=== PATIENT | female | born 1975 | race Hispanic/Latino ===

== ENCOUNTER 2020-08-19 15:14 | Outpatient (CLI) | payer BC, SELFPAY ==
--- NOTE | ~2020-08-19 | MM_ITS ---
EXAMINATION: MM screening philomena BI w arnold HISTORY: Screening mammogram, family history of breast cancer in her mother. TECHNIQUE: Craniocaudal and mediolateral oblique 3-D tomosynthesis images were obtained and synthetic 2-D images were generated. CAD analysis was submitted and interpreted. COMPARISON: No prior mammogram is available for comparison at this institution. BREAST PARENCHYMAL COMPOSITION: The breasts are heterogeneously dense, which may obscure small masses . FINDINGS: RIGHT BREAST: There are right breast masses with associated biopsy markers. A mass is present in the anterior third of the lower inner breast. LEFT BREAST: There is no evidence of suspicious mass, calcification, or architectural distortion to s uggest malignancy. IMPRESSION: 1. Right breast mass which may represent the patient's baseline however no comparison is currently av ailable. 2. Comparison with prior mammograms is necessary. BI-RADS Category 0: Incomplete: Needs comparison with prior mammograms. Reviewed, dictated and finalized at location A. IMPRESSION: 1. Right breast mass which may represent the patient's baseline however no comp arison is currently available. 2. Comparison with prior mammograms is necessary. BI-RADS Category 0: Incomplete: Needs comparison with prior mammograms.
== END 2020-08-19 15:15 | disposition home or self-care (01) ==
LOC: ANHIMG 15:17
PROVIDERS: PCP Physician Assistant; Visit Provider Obstetrics & Gynecology
DX: Z12.31 Encounter for screening mammogram for malignant neoplasm of breast (principal); R92.8 Other abnormal and inconclusive findings on diagnostic imaging of breast
CPT/HCPCS: 77063; 77067

== ENCOUNTER 2021-12-27 08:30 | Outpatient (CLI) | payer BC, SELFPAY ==
--- NOTE | ~2021-12-27 | MM_ITS ---
EXAMINATION: MM screening philomena BI w arnold HISTORY: Screening mammogram, family history of breast cancer in her mother. TECHNIQUE: Craniocaudal and mediolateral oblique 3-D tomosynthesis images were obtained and synthetic 2-D images were generated. CAD analysis was submitted and interpreted. COMPARISON: 08/19/2020, 01/26/2016, 10/20/2015 BREAST PARENCHYMAL COMPOSITION: The breasts are heterogeneously dense, which may obscure small masses . FINDINGS: There are stable biopsy masses of the right breast. No suspicious mass, calcification, or a rchitectural distortion are identified in either breast to suggest malignancy. There has been no susp icious interval change. IMPRESSION: 1. No mammographic evidence of malignancy. 2. Recommend routine screening mammography in one year. BI-RADS Category 2: Benign finding(s). Reviewed, dictated and finalized at location A.
== END 2021-12-27 08:31 | disposition home or self-care (01) ==
LOC: ANHIMG 08:32
PROVIDERS: PCP Physician Assistant; Visit Provider Obstetrics & Gynecology
DX: Z12.31 Encounter for screening mammogram for malignant neoplasm of breast (principal)
CPT/HCPCS: 77063; 77067

== ENCOUNTER 2023-11-07 07:38 | Outpatient (CLI) | payer BC, SELFPAY ==
--- NOTE | ~2023-11-07 | MM_ITS ---
EXAMINATION: MM screening philomena BI w arnold HISTORY: Screening TECHNIQUE: Craniocaudal and mediolateral oblique 3-D tomosynthesis images were obtained and synthetic 2-D images were generated. CAD analysis was submitted and interpreted. COMPARISON: Comparison to multiple prior studies sequentially, with oldest reviewed study dated 10/19. BREAST PARENCHYMAL COMPOSITION: Dense: The breasts are heterogeneously dense, which may obscure small masses FINDINGS: there is a developing asymmetry in the lower central aspect of the right breast anterior th ird. The left breast is stable without evidence for malignancy. IMPRESSION: 1. Developing right breast asymmetry. 2. Additional mammographic views and possible breast ultrasound are recommended. BI-RADS Category 0: Incomplete: Needs additional imaging evaluation. Reviewed, dictated and finalized at location B. IMPRESSION: 1. Developing right breast asymmetry. 2. Additional mammographic views and possible breast ultrasound are recommended . BI-RADS Category 0: Incomplete: Needs additional imaging evaluation.
== END 2023-11-07 07:39 | disposition home or self-care (01) ==
PROVIDERS: PCP Physician Assistant; Visit Provider Nurse Practitioner Obstetrics & Gynecology
DX: Z12.31 Encounter for screening mammogram for malignant neoplasm of breast (principal); N64.89 Other specified disorders of breast
CPT/HCPCS: 77063; 77067

== ENCOUNTER 2023-11-20 10:11 | Outpatient (CLI) | payer BC, SELFPAY ==
--- NOTE | ~2023-11-20 | MMUS_ITS ---
EXAMINATION: MM diagnostic philomena RT w arnold, US breast RT limited HISTORY: Developing right breast mass TECHNIQUE: Additional 3-D tomosynthesis images of the right breast were performed and synthetic 2-D i mages were generated. CAD analysis was submitted and interpreted. High resolution limited right breas t ultrasound was performed. COMPARISON: 11/07/2023, 12/27/2021, 08/19/2020 BREAST PARENCHYMAL COMPOSITION:Dense: The breasts are heterogeneously dense, which may obscure small masses. FINDINGS: MAMMOGRAPHIC FINDINGS: Spot compression views demonstrate suspected low-density ovoid subareolar right breast mass measuring 11 mm in maximum diameter. ULTRASOUND: At the right breast subareolar region, there is a 6 x 3 x 4 mm ovoid hypoechoic solid mass, wider karel n tall, well-circumscribed. No posterior shadowing. IMPRESSION: Subcentimeter probable benign ovoid mass in the right subareolar and, as detailed above. 6 month fol low-up mammogram and ultrasound recommended to reassess. BI-RADS category 3, probably benign findings. Reviewed, dictated and finalized at location M. IMPRESSION: Subcentimeter probable benign ovoid mass in the right subareolar and, as detai led above. 6 month follow-up mammogram and ultrasound recommended to reassess. BI-RADS category 3, probably benign findings.
== END 2023-11-20 10:12 | disposition home or self-care (01) ==
LOC: ANHIMG 10:11
PROVIDERS: PCP Physician Assistant; Visit Provider Nurse Practitioner Obstetrics & Gynecology
DX: R92.8 Other abnormal and inconclusive findings on diagnostic imaging of breast (principal)
CPT/HCPCS: 76642; 77061; 77065; G0279

== ENCOUNTER 2024-05-10 10:32 | Outpatient (CLI) | payer BC, SELFPAY ==
--- NOTE | ~2024-05-10 | MM_ITS ---
EXAMINATION: MM diagnostic philomena RT w arnold HISTORY: 48-year-old postmenopausal, nulliparous woman (via EMR) with a significant family history of breast cancer (diagnosed in patient's mother before the age of 50) presents following two prior righ t breast biopsies (presumably with benign results) for six-month follow-up asymmetry in the retroareo lar portion of the right breast TECHNIQUE: Additional 3-D tomosynthesis images of the right breast were performed and synthetic 2-D i mages were generated. CAD analysis was submitted and interpreted. COMPARISON: Examination was compared with multiple prior studies, performed most recently on and dating back to 10/20/2015 BREAST PARENCHYMAL COMPOSITION: Dense: The breasts are heterogeneously dense, which may obscure small masses. FINDINGS: MAMMOGRAPHIC FINDINGS: Two microclips within the upper outer quadrant of the posterior third of the right breast. Ultrasound dated 01/26/2016 demonstrated these areas to represent (most likely) benign fibroadenomas. Redemonstration of the retroareolar asymmetry within the right breast. This area has increased in siz e from previous examination for which repeat ultrasound is recommended. Cine clips from ultrasound dated 11/20/2023, demonstrate multiple tubular structures with internal tomasa scular debris. This appearance is concerning for an intraductal papilloma for which repeat ultrasound is recommended. IMPRESSION: Findings within the retroareolar position of the right breast for which focused ultrasound is recomme nded. BI-RADS Category 0: Incomplete: Needs additional imaging evaluation. Reviewed, dictated and finalized at location A. PULLER IMPRESSION: Findings within the retroareolar position of the right breast for which focused ultrasound is recommended. BI-RADS Category 0: Incomplete: Needs additional imaging evaluation.
--- OUTSIDE RECORDS SUMMARY | 2024-05-10 11:26 | XMS_ITS | Clinical Summary ---
Author Organization [facility] [place] Address [address] [address] [facility] [place] [address] Care Team Providers Care Casino Shift Manager Name Role Phone Unavailable Primary Care Provider Unavailabl e Allergies No known active allergies Medications lisinopril-hydr oCHLOROthiazide (ZESTORETIC) 20-12.5 mg tablet TAKE 1 2 (ONE HALF) TABLET BY MOUTH ONCE DAILY 1 08/23/2018 Active metoprolol succinate (TOPROL XL) 25 mg Extended Release 24 hour tablet TAKE 1 2 (ONE HALF) TABLET BY MOUTH ONCE DAILY AT BEDTIME 08/23/2018 Active AUTO SERVICE ADVISOR THYROID 90 mg tablet TAKE 1 TABLET BY MOUTH ONCE DAILY 08/12/2018 Active triamcinolone acetonide (KENALOG) 0.1 % Cream Apply to affected area 2 times daily. 30 Gram 09/13/2018 Active predniSONE (DELTASONE) 10 mg tablet Take 1 Tablet (10 mg) by mouth daily Take 6 tabs for 2 days and then decrease by 1 tab every 2 days.. 42 Tablet 09/13/2018 Active Active Problems No known active problems Social History Tobacco Use Types Packs/Day Years Used Date Smoking Tobacco: Never Comments No Sex and Gender Information Value Date Recorded Sex Assigned at Not on file Legal Sex Female 2:34 PM CDT Gender Identity Not on file Sexual Orientation Not on file Last Filed Vital Signs Vital Sign Reading Time Taken Comments Blood Pressure 121/84 09/13/2018 2:45 PM CDT Pulse 65 09/13/2018 2:45 PM CDT Temperature 37 C (98.6 F) 09/13/2018 2:45 PM CDT Respiratory Rate 20 09/13/2018 2:45 PM CDT Oxygen Saturation 99% 09/13/2018 2:45 PM CDT Inhaled Oxygen Concentration - - Weight - - Height - - Body Mass Index - - Plan of Treatment Health Maintenance Due Date Last Done Comments DTAP/TDAP/TD VACCINES (1 - Tdap) 1992 HEPATITIS B VACCINES (1 of 3 - 19+ 3-dose series) 1992 CERVICAL CANCER SCREENING 07/05/2003 BREAST CANCER SCREENING 2013 COLORECTAL SCREENING 2018 Colorectal Cancer Screening 2018 FIT-DNA Q 3 years 2018 FIT/FOBT Q 1 year 2018 Flex Sig/CT Colonography Q 5 years 2018 ZOSTER VACCINE (1 of 2) 07/05/2023 INFLUENZA VACCINE (#1) 2023 PNEUMOCOCCAL VACCINE 0-49 YEARS Aged Out No longer eligible based on patient's age to complete this topic Insurance OUT OF STATE Member Subscriber Plan / Payer (Ef fective 2018-Present) Name:Umu Frost Relation to Subscriber:Self Name:Umu Frost Payer ID:[id number] (NAIC) Type:[employer] Address: [facility] [id number] [place] [address]
--- OUTSIDE RECORDS SUMMARY | 2024-05-10 11:26 | XMS_ITS | Continuity of Care Document ---
Author Organization [facility] Address [address] [place] [address] Phone Care Team Providers Care Hydropress Operator Name Role Phone Danilo Desai PA-C Unavailable Unavailable Allergies, Adverse Reactions, Alerts Substance Reaction Status Criticality No Known Allergies Active No Inform ation Medications Medication Instructions Dosage Effective Dates (start - stop) Status Comments Tylenol-Codeine #3 300 mg-30 mg tablet take 1 tablet by oral route every 6 hours as needed - Active LISINOPRIL (unknown strength) Not Available - Active METOPROLOL TARTRATE (unknown strength) Not Available - Active ASPIRIN (unknown strength) Not Available - Active SYNTHROID (unknown strength) Not Available - Active Procedures Procedure Date Finger(s) Xray Min 2 Views Office/outpatient visit,[facility], [facility] 2022 Finger(s) Xray Min 2 Views Office/outpatient visit,[facility], [facility] 2022 Finger/thumb Fx (prox Or Middle Phalanx) Trtmt W/o Manip Hand Xray Min 3 Views Postop followup visit Postop followup visit Hand Metacarpal Fx Single,Trtmt W/o Mikhail p Office/outpatient visit,[facility], [facility] 2014 WHFO, W/O Joint(s), Prefabricated Advance Directives Directive Yes / No Effective Date File Name No Information Encounters Encounter Description Practice Location Reason(s) For Visit Diagnoses Date Provider Providers Copied on Encounter Office/outpat ient visit,est, mod [facility], [address] [place] [address], [id number], tel:[phone] [facility] Pain in left finger(s)Disp fx of middle phalanx of left little finger, 7thD 3 Lloyd Carrasco. [address] [place] [address], [id number] , . tel:[phone] Referring Provider: Danilo Desai, [address] [place] [address], [id number] . tel:[phone] [facility], [address] [place] [address], [id number], tel:[phone] [facility] Displaced fracture of middle phalanx of left little finger, subsequent encounter for fracture with routine healingFinger stiffness, left July- 3 Shade Loredo. [address] [place] [address], [id number] , . tel:[phone] Referring Provider: Danilo Desai, [address] [place] [address], [id number] . tel:[phone] Office/outpat ient visit,[facility], [facility], [address] [place] [address], [id number], tel:[phone] [facility] little finger (chief complaint) Pain in left finger(s)Close d displaced fracture of middle phalanx of left little finger, initial encounter 3 Lloyd Carrasco. [address] [place] [address], [id number] , . tel:[phone] Referring Provider: Danilo Desai, [address] [place] [address], [id number] . tel:[phone] [facility], [address] [place] [address], [id number], tel:[phone] [place] Office right hand pain (chief complaint) Fx Metacarp Bone(s), Base - ClosedFx Metacarpal Bone(s), Shaft - Closed Mar-2 0-201 5 Regine Machado. [address], [place], [id number] , . tel:[phone] Office/outpat ient visit,new, mod [facility], [address] [place] [address], [id number], tel:[phone] [facility] right hand pain (chief complaint) Fracture of fourth metacarpal boneSimple metacarpal shaft fx May- 5 Christopher Machado. [address], [place], [id number] , . tel:[phone] Referring Provider: Octaviano Donaldson, [address] [place], [address]. tel:[phone] [facility], [address] [place] [address], [id number], tel:[phone] [facility] No Information 5 Christopher Machado. [address], [place], [id number] , . tel:[phone] Referring Provider: Carter Kimble, [address] [place] [address], [id number] . tel:[phone] Family History Family Member Type Diagnosis Age At Onset Mother Problem (finding) malignant neop lasm of breast in first degree relative Father Problem (finding) Lymphoma Payers Payer name Insurance type Covered constitution party ID Authoriza nicholas(s) BC[facility] [id number] Social History Type Description Quantity Date Captured Comments Alcohol Use Details Unknown Caffeine Use Details Unknown Tobacco Use Status No Information Smoking Status No Information Sex Female Chief Complaint And Reason For Visit No Information Reason For Referral Reason For Referral No Information Plan Of Treatment Date Type Action Status Future Order: Radiology Order Fi nger(s) Xray Min 2 Views ([id number]), Ordered on: Ordered Future Order: Radiology Order Fi nger(s) Xray Min 2 Views ([id number]), Ordered on: Ordered Future Order: Radiology Order Bot[place] nd Xray Min 3 Views ([id number]), Ordered on: Ordered History Of Present Illness Encounter Date Complaint History Of Prese nt Illness little finger right hand pain Ms Frost is a 38 year old female who complains of right hand pain. She presents with pain, fracture and stiffness on the right side. The problem is improving. Currently the patient states that the symptoms are mild-moderate. The pain is described as aching and deep. The symptoms occur with activity. She rates her current pain as 2/10. Patient has been in a removable plastic brace has minimal complaints doing well at this time. right hand pain Ms Frost is a 38 year old female who complains of right hand pain. She presents with pain on the right side. She states that the symptoms have been acute traumatic and began 2 days ago. She indicates the injury occurred at home. Umu states that the symptoms began as the result of direct impact. The symptoms occur intermittently. The problem is fluctuating. Currently the patient states that the symptoms are moderate. The pain is described as aching. Patient was running on the treadmill and flung her hand out hitting it on the treadmill, sustaining injury to the fourth metacarpal. She denies numbness or tingling. She denies prior injury. She is right-hand dominant. She does not work outside the home Functional Status Date Functional Assessmen t No Information Instructions Date Instruction Additional Infor mation Findings were discus sed with patient I think it's in acceptable condition and position today we will continue with a removable ulnar gutter splint protective activities gentle range of motion was discussed we'll see her back in 3 weeks with x-rays out of the splint were expected that will be it with the splint if she has any problems concerns of interval she was asked call may require some physical therapy Related to Fx Metacarpal Bone(s), Shaft - Closed Patient was educated on the diagnosis and treatment plan. Related to Fx Metacarp Bone(s), Base - Closed We'll katerin tape fin gers and place her in a removable ulnar gutter splint. I will see her back in 10 days for recheck. She understands of the fracture shifts, we may have to stabilize it, but at this point, it should be amenable to nonoperative treatment Related to Fracture of fourth metacarpal bone Patient was educated on the diagnosis and treatment plan. Related to Fracture of fourth metacarpal bone FU 10 days XOOS Rt 4th metcarpal fx Related to Fracture of fourth metacarpal bone Assessments Type Assessment Date assessment Pain in left finger(s) assessment Disp fx of middle phalanx of lef t little finger, 7thD Patient Care Teams Name Effective Dates (start - stop) Status Members No Information
--- OUTSIDE RECORDS SUMMARY | 2024-05-10 11:26 | XMS_ITS | Encounter Summary ---
Author Organization [facility] Care Team Providers Care Geoduck Diver Name Role Phone Referral, Self Primary Care Provider MIGUELITO Solis Jr., Garry Valentin Primary Care Provide r Encounter Details Date Type Department Care Team (Latest Contact Info) Description 06/29/2017 Orders Only [facility] CLINCON[facility] ProviderDalia MD [address] [place] [address] Social History Tobacco Use Types Packs/Day Years Used Date Smoking Tobacco: Never Assessed Comments Unknown Sex and Gender Information Value Date Recorded Sex Assigned at Not on file Legal Sex 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 Historical Provider Final Res ult documented in this encounter Visit Diagnoses Not on filedocumented in this encounter Care Teams Geoduck Diver Relationship Specialty Start Date End Date Referral, Self PCP - General 07/03/17 01/14/20 Garry Gaitan Jr., PA PCP - General Family Medicine 01/15/20 documented as of this encounter
--- OUTSIDE RECORDS SUMMARY | 2024-05-10 11:26 | XMS_ITS | Encounter Summary ---
Author Organization [facility] Address [address] [place] [address] Care Team Providers Care Chair Trimmer Name Role Phone MIGUELITO Gaitan Jr., Garry Valentin Primary Care Provide r Reason for Visit * Reason Onset Date Comments Additional Services Or Orders 04/12/2024 Encounter Details Date Type Department Care Team ([facility] st Contact Info) Description 04/12/[address] [facility] Primary Care [address] [address] Garry Gaitan Jr., PA [address] [address] Additional Services Or Orders Social History Tobacco Use Types Packs/Day Years Used Date Smoking Tobacco: Former Cigarettes Q uit: 02/21/2008 Alcohol Use Standard Drinks/Week Comments Yes 0 (1 standard drink = 0.6 oz pur e alcohol) socially AUDIT-C Answer Date Recorded Q1: How often do you have a drink containing alc ohol? Monthly or less 10/26/2023 Q2: How many drinks containi ng alcohol do you have on a typical day when you are drinking? 1 or 2 10/26/2023 Frequency of Binge Drinking Not on file 10/05 PHQ-2 Answer Date Recorded PHQ-2 Total Score (If total score is 3 or more points, staff should administer the PHQ-9) 0 07/06/2023 Personal Safety Answer Date Recorded Getting School Help Needed Not on file 02/18 Comments No Sex and Gender Information Value Date Recorded Sex Assigned at Not on file Legal Sex 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 RN TRANSITIONAL Gender Identity Not on file Sexual Orientation Not on file documented as of this encounter Miscellaneous Notes * Telephone Encounter - Sheba Lozano - 04/12/2024 12:30 PM CST Medical Question/Miscellaneous Caller???s Concern: Patient calling, received letter from [facility] stating that she needs additional testing after her mammogram. Relayed that there are orders for US of Breast and Diagnostic Mammogram. Patient will call back with [place] contact information to send order, or will schedule with Centralized Scheduling. Does message need to be routed? No TRANSITIONAL documented in this encounter Plan of Treatment Not on file documented as of this encounter Visit Diagnoses Not on filedocumented in this encounter Care Teams Chair Trimmer Relationship Specialty Start Date End Date Garry Gaitan Jr., PA PCP - General Family Medicine 01/15/20 documented as of this encounter
--- OUTSIDE RECORDS SUMMARY | 2024-05-10 11:26 | XMS_ITS | Encounter Summary ---
Author Organization [facility] Address [address] [place] [address] Care Team Providers Care Automotive Parts Manager Name Role Phone Garry Gaitan Primary Care Provider [phone] Joseline Maldonado MD Unavailable [phone] Encounter Details Date Type Department Care Team (Latest Contact Info) Description 01/09/2018 Abstract [facility] , Nasim Childress MD Social History Tobacco Use Types Packs/Day Years Used Date Smoking Tobacco: Former Cigarettes Smokeless Tobacco: Never Alcohol Use Standard Drinks/Week Comments Yes 0 (1 standard drink = 0.6 oz pur e alcohol) occasionally Comments Unknown Sex and Gender Information Value Date Recorded Sex Assigned at Not on file Legal Sex Female 8:52 PM CDT Gender Identity Not on file Sexual Orientation Not on file 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 [address] [place], [place] [id number] documented as of this encounter Visit Diagnoses Not on filedocumented in this encounter Care Teams Automotive Parts Manager Relationship Specialty Start Date End Date Garry Gaitan PA [address] [place] [address] [address] [place], [place] [id number] PCP - General PHYSICIAN MACHINE OPERATOR HELPER 07/04/17 Joseline Maldonado MD [facility] [address] [place], [place] [id number] [facility] CARDIOVASCULAR [facility] 08/03/17 documented as of this encounter
--- OUTSIDE RECORDS SUMMARY | 2024-05-10 11:26 | XMS_ITS | Encounter Summary ---
Author Organization [facility] Address [address] [place] [address] Care Team Providers Care Digital Account Manager Name Role Phone MIGUELITO Gaitan Jr., Garry Valentin Primary Care Provide r Reason for Visit * Reason Onset Date Comments Medical Records Request 04/12/2024 Encounter Details Date Type Department Care Team ([facility] st Contact Info) Description 04/12/2024 Telephone [facility] Primary Care [address] [address] Garry Gaitan Jr., PA [address] [address] Medical Records Request Social History Tobacco Use Types Packs/Day Years [...] Getting School Help Needed Not on file 12/16 /2023 Comments No Sex and Gender Information Value Date Recorded Sex Assigned at Not on file Legal Sex 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 HEAD COOK Gender Identity Not on file Sexual Orientation Not on file documented as of this encounter Miscellaneous Notes * Telephone Encounter - Char Strange - 04/15/2024 1:03 PM CST LM @ 1:01pm on Umu's cp, informing her that I faxed both Diag Mamm and US Orders to [facility], which went through successfully. She's still scheduled on 05-13-24 Testing @ [facility], but not cancelling until I speak to Ms Frost. I've also spoke to AUSTYN about scheduling, so he's OK w/me calling to cancel, too. OK to warm transfer call to [place] (Madisyn @ Check Out)/[facility] COOK * Telephone Encounter - Ignacia Camargo - 04/12/2024 3:03 PM CST Call Back Caller???s Concern: Patient returned office call, DIRECTOR OF CONTENT MARKETING warm transferred to [place]. REASON FOR TRANSFER: per message from PCP office TRANSFERRED TO: Madisyn Does message need to be routed? No COOK * Telephone Encounter - Char Strange - 04/12/2024 2:37 PM CST LM @ 2:37pm on Umu's cp, asking for call back in re/what facility the Mamm results are gettingfaxed to. OK to warm transfer call to [place] (Madisyn @ Check Out)/[facility] COOK * Telephone Encounter - Xenia Jeronimo MA - 04/12/2024 1:46 PM CST Yes COOK * Telephone Encounter - Wen Tabares - 04/12/2024 12:43 PM CST Medical Records Request Request Type: Records Request Practice Will Complete What records are being requested:Screening Mammogram results Who will the records be sent to (if being sent to another doctor, list the doctor's name and specialty)? [facility] Date Needed: shalini Delivery Method: Fax Fax number to use for return of records: [phone] Additional Comments/Concerns: No Does the message need to be routed? Yes-Action Needed COOK documented in this encounter Plan of Treatment Not on file documented as of this encounter Visit Diagnoses Not on filedocumented in this encounter Care Teams Digital Account Manager Relationship Specialty Start Date End Date Garry Gaitan Jr., PA PCP - General Family Medicine 01/15/20 documented as of this encounter
--- OUTSIDE RECORDS SUMMARY | 2024-05-10 11:26 | XMS_ITS | Encounter Summary ---
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 Gender Identity Not on file Sexual Orientation Not on file documented as of this encounter Plan of Treatment Not on file documented as of this encounter Procedures Procedure Name Priority Date/Time Associated Diagnosis Comments SCAN - RADIOLOGY/IMAGING 11/20/2023 documented in this encounter Results * SCAN - RADIOLOGY/IMAGING (11/20/2023) Anatomical Region Laterality Modality Other us Provider Scanning Final Result documented in this encounter Visit Diagnoses Not on filedocumented in this encounter Care Teams Delicatessen Store Manager Relationship Specialty Start Date End Date Garry Gaitan Jr., PA PCP - General Family Medicine 01/15/20 documented as of this encounter
--- OUTSIDE RECORDS SUMMARY | 2024-05-10 11:26 | XMS_ITS | Encounter Summary ---
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 Historical Provider [facility] SHASHI LING Final Result documented in this encounter Visit Diagnoses Not on filedocumented in this encounter Care Teams Paint Crew Supervisor Relationship Specialty Start Date End Date Referral, Self PCP - General 07/03/17 01/14/20 Garry Gaitan Jr., PA PCP - General Family Medicine 01/15/20 documented as of this encounter
--- OUTSIDE RECORDS SUMMARY | 2024-05-10 11:26 | XMS_ITS | Referral Summary ---
Author Organization [facility] Address [address] [place] [address] Phone Care Team Providers Care Program Host Name Role Phone MIGUELITO Gaitan Jr., Garry Valentin Primary Care Provide r Encounters Date Type Department Care Team Description 04/12/2024 Telephone [facility] Medical [facility] Primary Care [address] [place] [phone] Garry Gaitan Jr., PA Medical Records Request 04/12/2024 Telephone [facility] Primary Care [address] [place] [phone] Garry Gaitan Jr., PA Additional Services Or Orders from Last 3 Months Allergies No known active allergies Medications omeprazole (PriLOSEC) 20 mg capsule Take 1 capsule (20 mg total) by mouth 2 (two) times a day Active metoprolol (LOPRESSOR) 25 mg tablet Take 1 tablet (25 mg total) by mouth 2 (two) times a day 180 tablet 4 11/15/2018 Active lisinopril-hydro CHLOROthiazide (ZESTORETIC) 20-12.5 mg per tabletIndication s:hypertension Take 0.5 tablets by mouth daily 90 tablet 1 11/27/2020 Active lisinopriL (PRINIVIL,ZESTRI L) 5 mg tablet 09/15/2023 Acti ve predniSONE (DELTASONE) 20 mg tablet TAKE 2 TABLETS BY MOUTH ONCE DAILY FOR 5 DAYS 10/21/2023 Active hydrOXYzine (ATARAX) 10 mg tabletIndication s:sleep 1 or 2 tabs at bedtime as needed. 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 Take 1 tablet (90 mg total) by mouth daily 90 tablet 1 12/11/2023 Active Active Problems Problem Noted Date Diagnosed Date Aortic dissection 10/26/2023 Pulmonary embolism 10/26/2023 Sleep apnea 10/26/2023 Thoracic aortic aneurysm 10/26/2023 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/03/2021 Acquired hypothyroidism 04/17/2020 Essential hypertension 04/17/2020 History of aortic dissection 04/17/2020 Hypertriglyceridemia 08/23/2018 Diaphragmatic hernia without obstruction or gang rehana 01/16/2018 Gastro-esophageal reflux disease without esophag itis 12/11/2017 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 Other obesity due to excess calories 07/03/2017 Immunizations Immunization Administration Dates Next Due Influenza, Quadrivalent, Spl it, Intramuscular 02/04/2016,12/01/2014 Influenza, Quadrivalent, Spl it, Preservative Free, Intramuscular 03/27/2018 Influenza, Unspecified 01/04/2023(Deferr ed: Patient Refused),12/10/2022,12/06/2021(Deferre d: Patient Refused),02/04/2016,12/01/2014 TD Preservative Free 10/12/2010 Social History Tobacco Use Types Packs/Day Years Used Date Smoking Tobacco: Former Cigarettes Q uit: 02/21/2008 Tobacco Cessation:Counseling Given: Not Answered Alcohol Use Standard Drinks/Week Comments Yes 0 [...] on file 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 Gender Identity Not on file Sexual Orientation Not on file Last Filed Vital Signs Vital Sign Reading Time Taken Comments Blood Pressure 120/78 10/26/2023 2:44 PM CDT Pulse 72 10/26/2023 2:44 PM CDT Temperature 35.9 C (96.6 F) 10/26/2023 2:44 PM CDT Respiratory Rate 16 10/26/2023 2:44 PM CDT Oxygen Saturation 99% 10/26/2023 2:44 PM CDT Inhaled Oxygen Concentration - - Weight 96.2 kg (212 lb) 10/26/2023 2:44 PM CDT Height 165.1 cm (5' 5 ) 10/26/2023 2:44 PM CDT Body Mass Index 35.28 10/26/2023 2:44 PM CDT Plan of Treatment Not on file Procedures Procedure Name Priority Date/Time Associated Diagnosis Comments SCREENING MAMMOGRAM BILATERAL W CARRIE Schedule Routine, Read Routine (OP Routine) 11/07/2023 4:46 PM CDT from Last 3 Months or Most Recently Relevant to Health Maintenance Results * (ABNORMAL) Screening Mammogram Bilateral W Carrie (11/07/2023 4:46 PM CDT) Anatomical Region Laterality Modality Breast Bilateral Mammography us Historical Provider MD ESCALERA MAMMO PROCEDURES Enriqueta l Result from Last 3 Months or Most Recently Relevant to Health Maintenance Insurance [facility] H[facility]/PPO Address: [address] [address] [place] [address] [employer] OOS ANTHEM ACCESS Care Teams Program Host Relationship Specialty Start Date End Date Garry Gaitan Jr., PA PCP - General Family Medicine 01/15/20
--- OUTSIDE RECORDS SUMMARY | 2024-05-10 11:26 | XMS_ITS | Encounter Summary ---
Author Organization [facility] Healthcare Address [address] [place] [address] Care Team Providers Care Dental Aide Name Role Phone MIGUELITO Gaitan Jr., Garry Valentin Primary Care Provide r Encounter Details Date Type Department Care Team ([facility] st Contact Info) Description 09/05/2023 Orders Only [facility] Medical Group Primary Care [address] [facility] [address] [place] [phone] Garry Gaitan Jr., PA [facility] [address] Social History Tobacco Use Types Packs/Day Years Used Date Smoking Tobacco: Former Cigarettes Q uit: 02/21/2008 Alcohol Use Standard Drinks/Week Comments Yes 0 (1 standard drink = 0.6 oz pur e alcohol) socially PHQ-2 Answer Date Recorded PHQ-2 Total Score (If total score is 3 or more points, staff should administer the PHQ-9) 0 07/06/2023 Personal Safety Answer Date Recorded Getting School Help Needed Not on file 02/18 Comments No Sex and Gender Information Value Date Recorded Sex Assigned at Not on file Legal Sex 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 TOOLER Gender Identity Not on file Sexual Orientation Not on file documented as of this encounter Plan of Treatment Not on file documented as of this encounter Visit Diagnoses Not on filedocumented in this encounter Care Teams Dental Aide Relationship Specialty Start Date End Date Garry Gaitan Jr., PA PCP - General Family Medicine 01/15/20 documented as of this encounter
--- OUTSIDE RECORDS SUMMARY | 2024-05-10 11:26 | XMS_ITS | Encounter Summary ---
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 [address] [place], [place] [id number] documented as of this encounter Procedures Procedure Name Priority Date/Time Associated Diagnosis Comments CBC (OUTSIDE LAB) Routine 12/14/2017 COMPREHENSIVE METABOLIC PANEL Routine 12/14/2017 COMPREHENSIVE METABOLIC PANEL Routine 04/11/2017 LIPID PANEL Routine 04/11/2017 HEMOGLOBIN, GLYCOSYLATED Routine 04/11/2017 documented in this encounter Results * CBC (OUTSIDE LAB) (12/14/2017) WBC 9.2 HGB 11.4 HCT 33.7 PLT 316 12/14/2017 us Doc [facility] Abstract LAB-OUTSIDE/ABSTRACTED Edite d Result - Final * COMPREHENSIVE METABOLIC PANEL (12/14/2017) SODIUM S/P/B 138 POTASSIUM S/P/B 3.9 CO2 26 CHLORIDE S/P/B 102 GLUCOSE 84 mg/dL CALCIUM S/P/B 9.0 BUN 13 CREATININE S/P/B 0.6 0.5 - 1.0 EGFR NON-AFR. AMER. >90 <=90 ALKALINE PHOSPHATASE S/P/B 54 ALT 9 AST 17 BILIRUBIN TOTAL S/P/B 0.5 ALBUMIN S/P/B 4.2 3.5 - 5.0 TOTAL PROTEIN S/P/B 7.2 GLOBULIN 3.0 12/14/2017 us Doc [facility] Abstract LABORATORY Final Result * HEMOGLOBIN, GLYCOSYLATED (04/11/2017) HGB A1C 5.2 04/11/2017 us Doc [facility] Abstract LABORATORY Final Result * COMPREHENSIVE METABOLIC PANEL (04/11/2017) GLUCOSE 85 mg/dL BUN 22 CREATININE S/P/B 1.0 0.5 - 1.0 ALKALINE PHOSPHATASE S/P/B 58 ALT 9 AST 14 BILIRUBIN TOTAL S/P/B 0.3 ALBUMIN S/P/B 4.0 3.5 - 5.0 TOTAL PROTEIN S/P/B 6.8 GLOBULIN 2.8 GGT 2.0 04/11/2017 us Doc [facility] Abstract LABORATORY Final Result * LIPID PANEL (04/11/2017) CHOLESTEROL 157 HDL 40 TRIGLYCERIDES 306 LDL (CALCULATED) 55 04/11/2017 us Doc [facility] Abstract LABORATORY Final Result documented in this encounter Visit Diagnoses Not on filedocumented in this encounter Care Teams Ela Teacher Relationship Specialty Start Date End Date Garry Gaitan PA [address] [place] [phone] PCP - General PHYSICIAN PACKAGING ASSOCIATE 07/04/17 Joseline Maldonado MD [facility] [address] [place], [place] [phone] [place] [employer] Correspondent CARDIOVASCULAR DISEASE 08/03/17 documented as of this encounter
--- OUTSIDE RECORDS SUMMARY | 2024-05-10 11:26 | XMS_ITS | Encounter Summary ---
Author Organization 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
--- OUTSIDE RECORDS SUMMARY | 2024-05-10 11:26 | XMS_ITS | Clinical Summary ---
Author Organization [facility] Address [address] [place] [address] Care Team Providers Care Rigging Helper Name Role Phone Garry Gaitan Primary Care Provider [phone] Joseline Maldonado MD Unavailable [phone] Allergies No known active allergies Medications Multiple Vitamin (DAILY VITAMINS) Tab Take 1 tablet by mouth daily. 10/27/2014 Active BARREL FILLER HEAD THYROID 90 MG Tab Take 1 tablet (90 mg total) by mouth daily. 1 08/12/2018 Active esomeprazole 40 MG capsule Take 1 capsule (40 mg total) by mouth every morning before breakfast. 90 capsule 3 05/03/2021 Active lisinopril (PRINIVIL) 5 MG tablet Take 1 tablet (5 mg total) by mouth daily. NEW DOSE 90 tablet 1 05/30/2022 Active ferrous sulfate EC 325 (65 Fe) MG tablet Take 1 tablet (325 mg total) by mouth daily. 90 tablet 3 09/27/2022 Active lisinopril (PRINIVIL) 5 MG tablet Take 1 tablet (5 mg total) by mouth daily. 90 tablet 1 10/25/2022 Active metoprolol succinate ER (TOPROL-XL) 25 MG 24 hr tablet Take 2 tablets (50 mg total) by mouth nightly at bedtime. 90 tablet 1 09/15/2023 Active WEGOVY 1 mg/dose injection (PEN) Inject 1 mg into the skin once a week. 09/26/2023 Active hydrOXYzine (VISTARIL) 25 MG capsule Take 1 capsule (25 mg total) by mouth daily. Active Active Problems Problem Noted Date Diagnosed Date 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/03/2021 Hypertriglyceridemia 08/23/2018 Thoracic aortic aneurysm Sleep apnea Pulmonary embolism ([facility]) Hypertension Aortic dissection ([facility]) Resolved Problems Problem Noted Date Diagnosed Date Resolved Date Skin tag 10/24/2022 Immunizations Name Administration Dates Next Due Influenza (Generic) 02/04/2016,12/01/2014 MODERNA COVID-19 (12+) MRNA, LNP-S, PF, 100 MCG/ 0.5 ML DOSE 07/08/2020,06/10/2020 Family History Medical History Relation Comments lymphoma Father Breast Cancer Mother Hypertension Mother Thyroid Sister Relation Status Comments Father Alive Maternal Grandfather Alive Maternal Grandmother Alive Mother Alive Paternal Grandfather Paternal Grandmother Sister Alive Social History Tobacco Use Types Packs/Day Years Used Date Smoking Tobacco: Former Cigarettes 0.3 15 0 03/06/1988 - 03/06/2003 Smokeless Tobacco: Never Alcohol Use Standard Drinks/Week Comments Yes 6.7 (1 standard drink = 0.6 oz p ure alcohol) occasionally PHQ-2 Answer Date Recorded PHQ-2 Score - If the patient scores above 3, please move on to questions 3-9 0 03/25/2020 Comments No Sex and Gender Information Value Date Recorded Sex Assigned at Not on file Legal Sex Female 8:52 PM CDT Gender Identity Not on file Sexual Orientation Not on file 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 Not on f ile Last Filed Vital Signs Vital Sign Reading Time Taken Comments Blood Pressure 118/64 10/30/2023 4:02 PM CDT Pulse 77 10/30/2023 3:34 PM CDT Temperature 36.8 C (98.3 F) 09/20/2022 2:15 PM CDT Respiratory Rate 21 09/20/2022 4:15 PM CDT Oxygen Saturation 99% 10/30/2023 3:34 PM CDT Inhaled Oxygen Concentration - - Weight 96.2 kg (212 lb) 10/30/2023 3:34 PM CDT Height 165.1 cm (5' 5 ) 10/30/2023 3:34 PM CDT Body Mass Index 35.28 10/30/2023 3:34 PM CDT Plan of Treatment Upcoming Encounters Date Type Department Care Team (Late st Contact Info) Description 10/28/2024 10:00 AM CDT Office Visit [facility] [address] [place] [address] [place] [address] Meli Marshall APRN [facility]. [address] [place] [address] Health Maintenance Due Date Last Done Comments Cervical Cancer Screening Pap Smear (Age 30 to 64) Every 3 Years 1973 Colorectal Cancer Screening Colonoscopy (10 Years) 1973 Annual Physical 1976 Hepatitis C 07/05/1991 Hepatitis B Vaccines (1 of 3 - 19+ 3-dose series) 1992 Cervical Cancer Screening Pap with HPV Testing (Age 30 to 64) Every 5 Years 07/05/2003 Cervical Cancer Screening with HPV 07/05/2003 DTaP, Tdap and Td Vaccines (1 - Tdap) 10/13/2010 10/12/2010 Mammogram Screening 07/28/2019 07/27/2017, 01/26/2016, 10/20/2015, Additional history exists Zoster Vaccines (1 of 2) 07/05/2023 COVID-19 Vaccine ( season) 2023 07/08/2020, 06/10/2020 Influenza Adult (#1) 2023 12/10/2022, 03/27/2018, 02/04/2016, Additional history exists Meningococcal B Vaccine Aged Out No l onger eligible based on patient's age to complete this topic Meningococcal Vaccine Aged Out No marco abida eligible based on patient's age to complete this topic Pneumococcal Vaccine: Pediatrics (0 to 5 Years) and At-Risk Patients (6 to 64 Years) Aged Out No longer eligible based on patient's age to complete this topic RSV Immunizations Under 20 Months Aged Out No longer eligible based on patient's age to complete this topic Insurance [facility] [address] BLUE [facility] Advance Directives * Full Code (Latest Code Status on File) Date Activated Date Inactivated Comments 09/20/2022 1:50 PM 09/20/2022 8:29 PM Care Teams Rigging Helper Relationship Specialty Start Date End Date Garry Gaitan PA [address] [place] [phone] PCP - General PHYSICIAN AQUACULTURE DIRECTOR 07/04/17 Joseline Maldonado MD [facility] [address] [place] [address] [place] [employer] CARDIOVASCULAR DISEASE 08/03/17
--- OUTSIDE RECORDS SUMMARY | 2024-05-10 11:26 | XMS_ITS | Encounter Summary ---
Author Organization [facility] Facility Care Team Providers Care Translational Specialist Name Role Phone Referral, Self Primary Care Provider Alex Gaitan Jr., PA, Garry Valentin Primary Care Provide r Encounter Details Date Type Department Care Team (Latest Contact Info) Description 03/07/2018 Orders Only [facility] ProviderDalia MD [address] [place] [address] Social History Tobacco Use Types Packs/Day Years Used Date Smoking Tobacco: Former Cigarettes Q uit: 02/21/2008 Alcohol Use Standard Drinks/Week Comments Yes 0 (1 standard drink = 0.6 oz pur e alcohol) socially Comments Unknown Sex and Gender Information Value Date Recorded Sex Assigned at Not on file Legal Sex 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 BOILER CONTROL 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 us Historical Provider [facility] SHASHI LING Final Result documented in this encounter Visit Diagnoses Not on filedocumented in this encounter Care Teams Translational Specialist Relationship Specialty Start Date End Date Referral, Self PCP - General 07/03/17 01/14/20 Garry Gaitan Jr., PA PCP - General Family Medicine 01/15/20 documented as of this encounter
--- OUTSIDE RECORDS SUMMARY | 2024-05-10 11:26 | XMS_ITS | Clinical Summary ---
Author Organization [facility] Address [address] [place] [address] Phone Care Team Providers Care Loft Worker Pile Driving Name Role Phone MIGUELITO Gaitan Jr., Robert James Primary Care Provide r Allergies No known active allergies Medications omeprazole [...] days 3 mL 1 12/07/2023 Active thyroid (CEPHALOMETRIC ANALYST Thyroid) 90 mg tabletIndication s:Hypothyroidism due to [...] Other obesity due to excess calories 07/03/2017 Encounters Date Type Department Care Team Description 04/12/2024 Telephone [facility] Primary Care [address] [place] [phone] Garry Gaitan Jr. PA Medical Records Request 04/12/2024 Telephone [facility] Primary Care [address] [place] [phone] Garry Gaitan Jr., PA Additional Services Or Orders from Last 3 Months Immunizations Immunization Administration Dates Next Due Influenza, Quadrivalent, Spl it, Intramuscular 02/04/2016,12/01/2014 Influenza, Quadrivalent, Spl it, Preservative Free, Intramuscular 03/27/2018 Influenza, Unspecified 01/04/2023(Deferr ed: Patient Refused),12/10/2022,12/06/2021(Deferre d: Patient Refused),02/04/2016,12/01/2014 TD Preservative Free 10/12/2010 Medical History Medical History Date Comments Hypertension Thyroid disease Family History Medical History Relation Name Comments Lymphoma Father Breast cancer Mother Relation Name Status Comments Father Mother Alive Social History Tobacco Use Types Packs/Day [...] on file Legal Sex 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 Gender Identity Not on file Sexual Orientation Not on file Obstetrics History Last Filed Vital Signs Vital Sign Reading [...] 10/26/2023 2:44 PM CDT Plan of Treatment Health Maintenance Due Date Last Done Comments Cervical Cancer Screening 1973 Colon Cancer Screening-Colonoscopy 1973 Hepatitis C Screening 1973 Hepatitis B Screening 07/05/1991 DTaP/Tdap/Td Vaccine (1 - Tdap) 10/13/2010 10/12/2010 Zoster Vaccine (1 of 2) 07/05/2023 Covid-19 Vaccine (3 - 2023- season) 2023 07/08/2020, 06/10/2020 Influenza Vaccine (#1) 2023 , 03/27/2018, 02/04/2016, Additional history exists Depression Screening 07/05/2024 07/06/2023, 10/08/19 23 Regular Well Visit/Exam 18-64 10/25/2024 10/26/2023, 10/07/2022, 10/07/2022 Breast Cancer Screening-Mammogram 11/06/2024 11/07/2023, 08/19/2020, 08/19/2020, Additional history exists Pneumococcal vaccine <65 Aged Out No longer eligible based on patient's age to complete this topic Procedures Procedure Name Priority Date/Time Associated Diagnosis [...] Maintenance Insurance [facility] H[facility]/PPO Address: [facility] [address] [place] [address] [employer] AN[employer]M ACCESS Care Teams Loft Worker Pile Driving Relationship Specialty Start Date End Date Garry Gaitan Jr., PA PCP - General Family Medicine 01/15/20
--- OUTSIDE RECORDS SUMMARY | 2024-05-10 11:26 | XMS_ITS | Encounter Summary ---
Author Organization [facility] Address [address] [place] [address] Care Team Providers Care Grades 1 Thru 6 Home Teacher Name Role Phone Tran Alcantara MD Primary Care Provider [phone] Garry Gaitan Primary Care Provider [phone] Joseline Maldonado MD Unavailable [phone] Encounter Details Date Type Department Care Team (Late st Contact Info) Description 03/17/2015 Abstract [facility] [address] [place] [address] David Neumann PA-C [address] [place] [address] Social History Tobacco Use Types Packs/Day Years Used Date Smoking Tobacco: Former Comments Unknown Sex and Gender Information Value Date Recorded Sex Assigned at Not on file Legal Sex Female 8:52 PM CDT Gender Identity Not on file Sexual Orientation Not on file 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 [address] [place], [place] [phone] documented as of this encounter Visit Diagnoses Not on filedocumented in this encounter Care Teams Grades 1 Thru 6 Home Teacher Relationship Specialty Start Date End Date Tran Alcantara MD [address] [place] [address] DR [facility] [address] PCP - General FAMILY PRACTICE 12/24/15 07/03/17 Garry Gaitan PA [address] [place] [address] [address] [place] [address] PCP - General PHYSICIAN ENGINEERING AID 07/04/17 Joseline Maldonado MD [facility] [address] [place] [address] [place] Chest Pain Coordinator CARDIOVASCULAR DISEASE 08/03/17 documented as of this encounter
== END 2024-05-10 10:33 | disposition home or self-care (01) ==
LOC: ANHIMG 10:33
PROVIDERS: PCP Physician Assistant; Visit Provider Nurse Practitioner Obstetrics & Gynecology
DX: R92.8 Other abnormal and inconclusive findings on diagnostic imaging of breast (principal)
CPT/HCPCS: 77061; 77065; G0279

== ENCOUNTER 2024-05-14 10:19 | Outpatient (CLI) | payer BC, SELFPAY ==
--- NOTE | ~2024-05-14 | US_ITS ---
EXAMINATION TYPE: US breast RT limited COMPARISON: 05/10/2024, 11/20/2023 REASON FOR STUDY: R92.8 - Other abnormal and inconclusive findings on diagn... TECHNIQUE: Targeted sonographic evaluation of the right breast was performed. INTERPRETATION: In the right subareolar region, there is a 5 x 7 x 3 mm hypoechoic circumscribed homogeneous mass. No posterior shadowing. There are a few mildly dilated ducts in the immediate right subareolar region, no intraductal mass appreciated. IMPRESSION: Stable 5 x 7 x 3 mm benign-appearing mass in the right subareolar region. Additional six-month follow -up ultrasound recommended to assure continued stability. Mildly dilated ducts without identifiable intraductal mass. BI-RADS CATEGORY: BI-RADS 3: Probably benign Reviewed, dictated and finalized at [facility]. IMPRESSION: Stable 5 x 7 x 3 mm benign-appearing mass in the right subareolar region. Addit ional six-month follow-up ultrasound recommended to assure continued stability. Mildly dilated ducts without identifiable intraductal mass. BI-RADS CATEGORY: BI-RADS 3: Probably benign
--- OUTSIDE RECORDS SUMMARY | 2024-05-14 11:42 | XMS_ITS | Encounter Summary ---
Author Organization [facility] Care Team Providers Care Nurse Paralegal Name Role Phone Referral, Self Primary Care Provider Alex Gaitan Jr., PA, Garry Valentin Primary Care Provide r Encounter Details Date Type Department Care Team (Latest Contact Info) Description 03/07/2018 Orders Only [facility] CLINCONV ProviderDalia MD [address] [place] [address] Social History Tobacco Use Types Packs/Day Years Used Date Smoking Tobacco: Former Cigarettes Q uit: 02/21/2008 Alcohol Use Standard Drinks/Week Comments Yes 0 (1 standard drink = 0.6 oz pur e alcohol) socially Comments Unknown Sex and Gender Information Value Date Recorded Sex Assigned at Not on file Legal Sex 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 SAFETY REPRESENTATIVE Gender Identity Not on file Sexual Orientation Not on file documented as of this encounter Plan of Treatment Not on file documented as of this encounter Procedures Procedure Name Priority Date/Time Associated Diagnosis Comments CARDIOLOGY REPORT 05/02/2018 12: 00 AM SAFETY REPRESENTATIVE documented in this encounter Results * CARDIOLOGY REPORT (05/02/2018 12:00 AM SAFETY REPRESENTATIVE) Anatomical Region Laterality Modality Other Narrative 05/02/2018 12:00 AM SAFETY REPRESENTATIVE Ordered by an unspecified provider. us Historical Provider [facility] SHASHI LING Final Result documented in this encounter Visit Diagnoses Not on filedocumented in this encounter Care Teams Nurse Paralegal Relationship Specialty Start Date End Date Referral, Self PCP - General 07/03/17 01/14/20 Garry Gaitan Jr., PA PCP - General Family Medicine 01/15/20 documented as of this encounter
--- OUTSIDE RECORDS SUMMARY | 2024-05-14 11:42 | XMS_ITS | Encounter Summary ---
Author Organization [facility] Healthcare Address [address] [place] [address] Care Team Providers Care Uat Tester Name Role Phone MIGUELITO Gaitan Jr., Garry Valentin Primary Care Provide r Reason for Visit * Reason Onset Date Comments Additional Services Or Orders 04/12/2024 Encounter Details Date Type Department Care Team ([facility] st Contact Info) Description 04/12/2024 Telephone [facility] Medical Group Primary Care [address] [address] Garry Gaitan Jr., PA [address] [address] Additional Services Or Orders Social [...] on file Legal 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 Patient will call back with [facility] contact information to send order, or will schedule with Centralized Scheduling. Does message need to be routed? No BURNER MECHANIC documented in this encounter Plan of Treatment Not on file documented as of this encounter Visit Diagnoses Not on filedocumented in this encounter Care Teams Uat Tester Relationship Specialty Start Date End Date Garry Gaitan Jr., PA PCP - General Family Medicine 01/15/20 documented as of this encounter
--- OUTSIDE RECORDS SUMMARY | 2024-05-14 11:42 | XMS_ITS | Encounter Summary ---
Author Organization [facility] Healthcare Address [address] [place] [address] Care Team Providers Care Paraprofessional Education Assistant Name Role Phone MIGUELITO Gaitan Jr., Garry Valentin Primary Care Provide r Reason for Visit * Reason Onset Date Comments Medical Records Request 04/12/2024 Encounter Details Date Type Department Care Team ([facility] st Contact Info) Description 04/12/2024 Telephone [facility] Medical Group Primary Care [address] [address] Garry Gaitan Jr., PA [address] [address] Medical Records Request Social History [...] on file Legal Sex 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ERK Gender Identity Not on file Sexual Orientation Not on file documented as of this encounter Miscellaneous Notes * Telephone Encounter - Char Strange - 04/15/2024 1:03 PM CST LM @ 1:01pm on Umu's cp, informing her that I faxed both Diag Mamm and US Orders to Raghu Story, which went through successfully. She's still scheduled on 05-13-[address] [facility], but not cancelling until I speak to Ms Frost. I've also spoke to AUSTYN about scheduling, so he's OK w/me calling to cancel, too. OK to warm transfer call to [place] (Madisyn @ Check Out)/[facility]ATE [facility] CLERK * Telephone Encounter - Ignacia Camargo - 04/12/2024 3:03 PM CST Call Back Caller???s Concern: Patient returned office call, PSYCHOLOGIST PRIVATE PRACTICE warm transferred to [place]. REASON FOR TRANSFER: per message from PCP office TRANSFERRED TO: Madisyn Does message need to be routed? No LLATE COURT CLERK * Telephone Encounter - Char Strange - 04/12/2024 2:37 PM CST LM @ 2:37pm on Umu's cp, asking for call back in re/what facility the Mamm results are gettingfaxed to. OK to warm transfer call to [place] (Madisyn @ Check Out)/[facility]ATE [facility] CLERK * Telephone Encounter - Xenia Jeronimo MA - 04/12/2024 1:46 PM CST Yes [address] COURT CLERK * Telephone Encounter - Wen Tabares - 04/12/2024 12:43 PM CST Medical Records Request Request Type: Records Request Practice Will Complete What records are being requested:Screening Mammogram results Who will the records be sent to (if being sent to another doctor, list the doctor's name and specialty)? [facility] Date Needed: shalini Delivery Method: Fax Fax number to use for return of records: [phone] Additional Comments/Concerns: No Does the message need to be routed? Yes-Action Needed LLATE COURT CLERK documented in this encounter Plan of Treatment Not on file documented as of this encounter Visit Diagnoses Not on filedocumented in this encounter Care Teams Paraprofessional Education Assistant Relationship Specialty Start Date End Date Garry Gaitan Jr., PA PCP - General Family Medicine 01/15/20 documented as of this encounter
--- OUTSIDE RECORDS SUMMARY | 2024-05-14 11:42 | XMS_ITS | Referral Summary ---
Author Organization [facility] Address [address] [place] [address] Phone Care Team Providers Care Clinical Nurse Specialist Name Role Phone MIGUELITO Gaitan Jr., Garry Valentin Primary Care Provide r Encounters Date Type Department Care Team Description 04/12/2024 Telephone [facility] Medical [facility] Primary Care [address] [place] [address] Garry Gaitan Jr., PA Medical Records Request 04/12/2024 Telephone [facility] Primary Care [address] [place] [address] Garry Gaitan Jr., PA Additional Services [...] days 3 mL 1 12/07/2023 Active thyroid (ASSISTANT FILM EDITOR Thyroid) 90 mg tabletIndication s:Hypothyroidism due to [...] on file Legal Sex 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
--- OUTSIDE RECORDS SUMMARY | 2024-05-14 11:42 | XMS_ITS | Encounter Summary ---
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 [address] [place] [address] Meli Marshall APRN [facility]. [address] [place], [place] [id number] documented as of this encounter Procedures Procedure [...] on filedocumented in this encounter Care Teams Flour Distributor Relationship Specialty Start Date End Date Garry Gaitan PA [address] [place] [id number] PCP - General PHYSICIAN VIDEO GAME ENGINEER 07/04/17 Joseline Maldonado MD [facility] [address] [place], [place] [address] [facility] [employer] Contacts Adjuster CARDIOVASCULAR DISEASE 08/03/17 documented as of this encounter
--- OUTSIDE RECORDS SUMMARY | 2024-05-14 11:42 | XMS_ITS | Continuity of Care Document ---
Author Organization [facility] Address [address] [place] [address] Phone Care Team Providers Care Subway Train Operator Name Role Phone Danilo Desai PA-C [...] Date Finger(s) Xray Min 2 Views Office/outpatient visit,[facility], [facility] 2022 Finger(s) Xray Min 2 Views Office/outpatient visit,[facility], [facility] 2022 Finger/thumb Fx (prox Or Middle Phalanx) Trtmt W/o Manip Hand Xray Min 3 Views Postop followup visit Postop followup visit Hand Metacarpal Fx Single,Trtmt W/o Mikhail p Office/outpatient visit,[facility], [facility] 2014 WHFO, W/O Joint(s), Prefabricated Advance Directives Directive Yes / No Effective Date File Name No Information Encounters Encounter Description Practice Location Reason(s) For Visit Diagnoses Date Provider Providers Copied on Encounter Office/outpat ient visit,est, mod [facility], [address] [place] [address], [id number], tel:[phone] [facility] Pain in left finger(s)Disp fx of middle phalanx of left little finger, 7thD 3 Lloyd Carrasco. [address] [place] [address], [id number] , . tel:[phone] Referring Provider: Danilo Desai, [address] [place] [address], [id number] . tel:[phone] [facility], [address] [place] [address], [id number], tel:[phone] [facility] Displaced fracture of middle phalanx of left little finger, subsequent encounter for fracture with routine healingFinger stiffness, left July- 3 Shade Loredo. [address] [place] [address], [id number] , . tel:[phone] Referring Provider: Danilo Desai, [address] [place] [address], [id number] . tel:[phone] Office/outpat ient visit,[facility], [facility], [address] [place] [address], [id number], tel:[phone] [facility] little finger (chief complaint) Pain in left finger(s)Close d displaced fracture of middle phalanx of left little finger, initial encounter 3 Lloyd Carrasco. [address] [place] [address], [id number] , . tel:[phone] Referring Provider: Danilo Desai, [address] [place] [address], [id number] . tel:[phone] [facility], [address] [place] [address], [id number], tel:[phone] [place] Office right hand pain (chief complaint) Fx Metacarp Bone(s), Base - ClosedFx Metacarpal Bone(s), Shaft - Closed Mar-2 0-201 5 Regine Machado. [address] [place], [place], [id number] , . tel:[phone] Office/outpat ient visit,new, mod [facility], [address] [place] [address], [id number], tel:[phone] [facility] right hand pain (chief complaint) Fracture of fourth metacarpal boneSimple metacarpal shaft fx May- 5 Christopher Machado. [address] [place], [place], [id number] , . tel:[phone] Referring Provider: Octaviano Donaldson, [address] [place], [address]. tel:[phone] [facility], [address] [place] [address], [id number], tel:[phone] [facility] No Information 5 Christopher Machado. [address] [place], [place], [id number] , . tel:[phone] Referring Provider: Carter Kimble, [address] [place] [address], [id number] . tel:[phone] Family History Family Member Type Diagnosis Age At Onset Mother Problem (finding) malignant neop lasm of breast in first degree relative Father Problem (finding) Lymphoma Payers Payer name Insurance type Covered libertarian ID Authoriza nicholas(s) BCBS Of [facility] [id number] Social History Type Description Quantity Date Captured Comments Alcohol Use Details Unknown Caffeine Use Details Unknown Tobacco Use Status No Information Smoking Status No Information Sex Female Chief Complaint And Reason For Visit No Information Reason For Referral Reason For Referral No Information Plan Of Treatment Date Type Action Status Future Order: Radiology Order Fi nger(s) Xray Min 2 Views ([id number]), Ordered on: Ordered Future Order: Radiology Order Fi nger(s) Xray Min 2 Views ([id number]), Ordered on: Ordered Future Order: Radiology Order Bot[place] nd Xray Min 3 Views ([id number]), Ordered on: Ordered History Of Present Illness [...]
--- OUTSIDE RECORDS SUMMARY | 2024-05-14 11:42 | XMS_ITS | Encounter Summary ---
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
--- OUTSIDE RECORDS SUMMARY | 2024-05-14 11:42 | XMS_ITS | Encounter Summary ---
Author Organization [facility] Healthcare Address [address] [place] [address] Care Team Providers Care Field Research Assistant Name Role Phone MIGUELITO Gaitan Jr., Garry Valentin Primary Care Provide r Encounter Details Date Type Department Care Team ([facility] st Contact Info) Description 09/05/2023 Orders Only [facility] Medical Group Primary Care [address] [facility] [address] [place] [phone] Garry Gaitan Jr., PA [facility] [address] Social History Tobacco Use Types [...] on file Legal Sex 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
--- OUTSIDE RECORDS SUMMARY | 2024-05-14 11:42 | XMS_ITS | Encounter Summary ---
Author Organization 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
--- OUTSIDE RECORDS SUMMARY | 2024-05-14 11:42 | XMS_ITS | Encounter Summary ---
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 [address] [place], [place] [id number] documented as of this encounter Visit Diagnoses Not on filedocumented in this encounter Care Teams Director Of Curriculum And Instruction Relationship Specialty Start Date End Date Garry Gaitan PA [address] [place] [address] [address] [employer] [place], [place] [id number] PCP - General PHYSICIAN MAIL ROOM 07/04/17 Joseline Maldonado MD [facility]. [facility] [address] [place], [place] [id number] [place] Teacher'S Aide CARDIOVASCULAR DISEASE 08/03/17 documented as of this encounter
--- OUTSIDE RECORDS SUMMARY | 2024-05-14 11:42 | XMS_ITS | Clinical Summary ---
Author Organization [facility] Address [address] [place] [address] Care Team Providers Care Pet Sitting Name Role Phone Garry Gaitan Primary Care Provider [phone] Joseline Maldonado MD Unavailable [phone] Allergies No known active allergies Medications Multiple Vitamin (DAILY VITAMINS) Tab Take 1 tablet by mouth daily. 10/27/2014 Active DEBATE DIRECTOR THYROID 90 MG Tab Take 1 tablet [...] Thoracic aortic aneurysm Sleep apnea Pulmonary embolism ([facility]) Hypertension Aortic dissection (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 [address] [place] [address] Health Maintenance Due Date Last Done Comments [...] patient's age to complete this topic Insurance [facility] [id number] [facility] Advance Directives * Full Code (Latest Code Status on File) Date Activated Date Inactivated Comments 09/20/2022 1:50 PM 09/20/2022 8:29 PM Care Teams Pet Sitting Relationship Specialty Start Date End Date Garry Gaitan PA [address] [place] [id number] PCP - General PHYSICIAN BISQUE KILN DRAWER 07/04/17 Joseline Maldonado MD [facility] [address] [place] [address] [place] [employer] CARDIOVASCULAR DISEASE 08/03/17
--- OUTSIDE RECORDS SUMMARY | 2024-05-14 11:42 | XMS_ITS | Encounter Summary ---
Author Organization [facility] Facility Care Team Providers Care Head Of Sales And Marketing Name Role Phone Referral, Self Primary Care Provider MIGUELITO Solis Jr., Garry Valentin Primary Care Provide r Encounter Details Date Type Department Care Team (Latest Contact Info) Description 06/29/2017 Orders Only [facility]IN[facility] ProviderDalia MD [address] [place] [address] Social History Tobacco Use Types Packs/Day Years Used Date Smoking Tobacco: Never Assessed Comments Unknown Sex and Gender Information Value Date Recorded Sex Assigned at Not on file Legal Sex 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 SUPERVISOR ROVING Gender Identity Not on file Sexual Orientation [...] on filedocumented in this encounter Care Teams Head Of Sales And Marketing Relationship Specialty Start Date End Date Referral, Self PCP - General 07/03/17 01/14/20 Garry Gaitan Jr., PA PCP - General Family Medicine 01/15/20 documented as of this encounter
--- OUTSIDE RECORDS SUMMARY | 2024-05-14 11:42 | XMS_ITS | Encounter Summary ---
Author Organization [facility] Facility Care Team Providers Care Photography Instructor Name Role Phone Referral, Self Primary Care Provider MIGUELITO Solis Jr., Garry Valentin Primary Care Provide r Encounter Details Date Type Department Care Team (Latest Contact Info) Description 04/12/2017 Orders Only [facility] CLINCONV ProviderDalia MD [address] [place] [address] Social History Tobacco Use Types Packs/Day Years Used Date Smoking Tobacco: Never Assessed Comments Unknown Sex and Gender Information Value Date Recorded Sex Assigned at Not on file Legal Sex 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
--- OUTSIDE RECORDS SUMMARY | 2024-05-14 11:42 | XMS_ITS | Clinical Summary ---
Author Organization [facility] Address [address] [place] [address] Phone Care Team Providers Care Pocket Stitcher Name Role Phone MIGUELITO Gaitan Jr., Robert [...] days 3 mL 1 12/07/2023 Active thyroid (DINKEY OPERATOR SLAG Thyroid) 90 mg tabletIndication s:Hypothyroidism due to [...] Type Department Care Team Description 04/12/2024 Telephone [facility] [address] [place] [phone] Garry Gaitan Jr. PA Medical Records Request 04/12/2024 Telephone [facility] [address] [place] [phone] Garry Gaitan Jr., PA Additional Services [...] on file Legal Sex 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 COLLET GLUER Gender Identity Not on file Sexual Orientation [...] Most Recently Relevant to Health Maintenance Insurance [facility] CHOICE PLUS [facility] HMO/PPO Address: [facility] [address] [place] [address] BLUE ACCESS OOS ANTHEM ACCESS Care Teams Pocket Stitcher Relationship Specialty Start Date End Date Garry Gaitan Jr., PA PCP - General Family Medicine 01/15/20
--- OUTSIDE RECORDS SUMMARY | 2024-05-14 11:42 | XMS_ITS | Encounter Summary ---
Author Organization [facility] Address [address] [place] [address] Care Team Providers Care Farmworker Fryer Farm Name Role Phone Tran Alcantara MD Primary Care Provider [phone] Garry Gaitan Primary Care Provider [phone] Joseline Maldonado MD Unavailable [phone] Encounter Details Date Type Department Care Team (Late st Contact Info) Description 03/17/2015 Abstract [facility] [address] [place] [address] David Neumann PA-C [address] [place] [address] Social History Tobacco Use Types Packs/Day Years Used Date Smoking Tobacco: Former Comments Unknown Sex and Gender Information Value Date Recorded Sex Assigned at Not on file Legal Sex Female 8:52 PM CDT Gender Identity Not on file Sexual Orientation Not on file 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 [address] [place], [place] [phone] documented as of this encounter Visit Diagnoses Not on filedocumented in this encounter Care Teams Farmworker Fryer Farm Relationship Specialty Start Date End Date Tran Alcantara MD [address] [place] [address] [address] [facility] [place] [address] PCP - General FAMILY PRACTICE 12/24/15 07/03/17 Garry Gaitan PA [address] [place] [address] [address] [place] [address] PCP - General PHYSICIAN TERRAZZO INSTALLER 07/04/17 Joseline Maldonado MD [facility] [address] [place] [address] [place] Manual Plate Filler CARDIOVASCULAR DISEASE 08/03/17 documented as of this encounter
--- OUTSIDE RECORDS SUMMARY | 2024-05-14 11:42 | XMS_ITS | Clinical Summary ---
Author Organization [facility] [place] Address [address] [facility] [address] Care Team Providers Care Publishing Agent Name Role Phone Unavailable Primary Care Provider Unavailabl e Allergies No known active allergies Medications lisinopril-hydr oCHLOROthiazide (ZESTORETIC) 20-12.5 mg tablet TAKE 1 2 (ONE HALF) TABLET BY MOUTH ONCE DAILY 1 08/23/2018 Active metoprolol succinate (TOPROL XL) 25 mg Extended Release 24 hour tablet TAKE 1 2 (ONE HALF) TABLET BY MOUTH ONCE DAILY AT BEDTIME 08/23/2018 Active FURNITURE FINISHER THYROID 90 mg tablet TAKE 1 TABLET [...]
== END 2024-05-14 10:20 | disposition home or self-care (01) ==
LOC: ANHIMG 10:21
PROVIDERS: PCP Physician Assistant; Visit Provider Nurse Practitioner Obstetrics & Gynecology
DX: R92.8 Other abnormal and inconclusive findings on diagnostic imaging of breast (principal); N63.41 Unspecified lump in right breast, subareolar
CPT/HCPCS: 76642

== ENCOUNTER 2024-11-08 10:52 | Outpatient (CLI) | payer BC, SELFPAY ==
--- NOTE | ~2024-11-08 | US_ITS ---
Clinical history:6 month follow-up right breast EXAM:Ultrasound breast right limited TECHNIQUE:Multiple static grayscale images and color Doppler images were obtained of the right subareolar region. Comparisons:Breast ultrasounds from 05/14/2024 and 11/20/2023 FINDINGS: There is a 7 x 6 x 3 mm hypoechoic mass in the right subareolar region anterior depth. The finding is wider than tall and well-circumscribed. No internal color Doppler flow. No posterior acoustic shadowing. The finding is stable size and configuration dating back to 11/20/2023. The finding is probably benign. No other cystic or solid mass identified in the right subareolar region. IMPRESSION: 1. Probably benign finding in the right subareolar region. A diagnostic right breast ultrasound in 6 months is recommended. BI-RADS 3-probably benign Reviewed, dictated and finalized at location [facility]. IMPRESSION: 1. Probably benign finding in the right subareolar region. A diagnostic right b reast ultrasound in 6 months is recommended. BI-RADS 3-probably benign
--- OUTSIDE RECORDS SUMMARY | 2024-11-08 11:20 | XMS_ITS | Clinical Summary ---
Author Organization [facility] Address [address] [place] [address] Phone Care Team Providers Care Snow Plow Tractor Operator Name Role Phone MIGUELITO Gaitan Jr., Robert [...] days 3 mL 1 12/07/2023 Active thyroid (DISPLAY SCREEN FABRICATOR Thyroid) 90 mg tabletIndication s:Hypothyroidism due to [...] on file Legal Sex 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 DRUG INSPECTOR Gender Identity Not on file Sexual [...] 2:44 PM CDT Height 165.1 cm (5' 5) 10/26/2023 2:44 PM CDT Body Mass Index 35.28 10/26/2023 2:44 PM CDT Plan of Treatment Health Maintenance Due Date Last Done Comments Cervical Cancer Screening 1973 Colon Cancer Screening-Colonoscopy 1973 Hepatitis C Screening 1973 Hepatitis B Screening 07/05/1991 DTaP/Tdap/Td Vaccine (1 - Tdap) 10/13/2010 10/12/2010 Zoster Vaccine (1 of 2) 07/05/2023 Covid-19 Vaccine (3 - season) 2023 07/08/2020, 06/10/2020 Depression Screening 07/05/2024 07/06/2023, 10/08/19 23 Regular Well Visit/Exam 18-64 10/25/2024 10/26/2023, 10/07/2022, 10/07/2022 Influenza Vaccine (#1) 2024 , 03/27/2018, 02/04/2016, Additional history exists Breast Cancer Screening-Mammogram 11/06/2024 11/07/2023, 08/19/2020, 08/19/2020, [...] Most Recently Relevant to Health Maintenance Insurance [facility] CHOICE [facility]US [facility]PPO Address: [place] [address] [employer] OOS ANTHEM ACCESS Care Teams Snow Plow Tractor Operator Relationship Specialty Start Date End Date Garry Gaitan Jr., PA PCP - General Family Medicine 01/15/20
--- OUTSIDE RECORDS SUMMARY | 2024-11-08 11:20 | XMS_ITS | Encounter Summary ---
Author Organization [facility] Facility Care Team Providers Care Manager Product Design Name Role Phone Referral, Self Primary Care Provider MIGUELITO Solis Jr., Garry Valentin Primary Care Provide r Encounter Details Date Type Department Care Team (Latest Contact Info) Description 04/12/2017 Orders Only [facility] CLINCONV ProviderDalia MD [address] [place] [address] Social History Tobacco Use Types Packs/Day Years Used Date Smoking Tobacco: Never Assessed Comments Unknown Sex and Gender Information Value Date Recorded Sex Assigned at Not on file Legal Sex 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 CARROT TIER Gender Identity Not on file Sexual Orientation [...] on filedocumented in this encounter Care Teams Manager Product Design Relationship Specialty Start Date End Date Referral, Self PCP - General 07/03/17 01/14/20 Garry Gaitan Jr., PA PCP - General Family Medicine 01/15/20 documented as of this encounter
--- OUTSIDE RECORDS SUMMARY | 2024-11-08 11:20 | XMS_ITS | Encounter Summary ---
Author Organization [facility] Facility Care Team Providers Care Salvage Clerk Name Role Phone Referral, Self Primary Care Provider MIGUELITO Solis Jr., Garry Valentin Primary Care Provide r Encounter Details Date Type Department Care Team (Latest Contact Info) Description 09/07/2017 Orders Only [facility] CLINCONV ProviderDalia MD [address] [place] [address] Social History Tobacco Use Types Packs/Day Years Used Date Smoking Tobacco: Never Assessed Comments Unknown Sex and Gender Information Value Date Recorded Sex Assigned at Not on file Legal Sex 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 INFORMATION TECHNOLOGY ACCOUNT MANAGER Gender Identity Not on file Sexual Orientation [...] on filedocumented in this encounter Care Teams Salvage Clerk Relationship Specialty Start Date End Date Referral, Self PCP - General 07/03/17 01/14/20 Garry Gaitan Jr., PA PCP - General Family Medicine 01/15/20 documented as of this encounter
--- OUTSIDE RECORDS SUMMARY | 2024-11-08 11:20 | XMS_ITS | Encounter Summary ---
Author Organization [facility] Address [address] [place] [address] Care Team Providers Care Postmaster Name Role Phone MIGUELITO Gaitan Jr., Garry Valentin Primary Care Provide r Encounter Details Date Type Department Care Team (Late st Contact Info) Description 11/20/2023 Orders Only [facility] Health Information Management [address] [place] [address] Scanning, Provider Social History Tobacco Use Types [...] on file Legal Sex 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 SLICE PLUG CUTTER OPERATOR HELPER Gender Identity Not on file Sexual Orientation [...] on filedocumented in this encounter Care Teams Postmaster Relationship Specialty Start Date End Date Garry Gaitan Jr., PA PCP - General Family Medicine 01/15/20 documented as of this encounter
--- OUTSIDE RECORDS SUMMARY | 2024-11-08 11:20 | XMS_ITS | Clinical Summary ---
Author Organization [facility] [place] [place] Address [address] [facility] [place] [address] Care Team Providers Care Paving Supervisor Name Role Phone Unavailable Primary Care Provider Unavailabl e Allergies No known active allergies Medications lisinopril-hydr oCHLOROthiazide (ZESTORETIC) 20-12.5 mg tablet TAKE 1 2 (ONE HALF) TABLET BY MOUTH ONCE DAILY 1 08/23/2018 Active metoprolol succinate (TOPROL XL) 25 mg Extended Release 24 hour tablet TAKE 1 2 (ONE HALF) TABLET BY MOUTH ONCE DAILY AT BEDTIME 08/23/2018 Active SET UP PERSON THYROID 90 mg tablet TAKE 1 TABLET [...] (1 of 3 - 19+ 3-dose series) 03/1992 HPV/Cotest (21-29) 1994 CERVICAL CANCER SCREENING 07/05/2003 HPV/Cotest (30-65) 07/05/2003 PAP SMEAR 07/05/2003 BREAST CANCER SCREENING 2013 COLORECTAL SCREENING 2018 Colorectal Cancer Screening 2018 FIT-DNA Q 3 years 2018 FIT/FOBT Q 1 year 2018 Flex Sig/CT Colonography Q 5 years 2018 ZOSTER VACCINE (1 of 2) 07/05/2023 INFLUENZA VACCINE (#1) 2024 Insurance OUT OF STATE
--- OUTSIDE RECORDS SUMMARY | 2024-11-08 11:20 | XMS_ITS | Encounter Summary ---
Author Organization [facility] Facility Care Team Providers Care Network Communications Engineer Name Role Phone Referral, Self Primary Care Provider Alex Gaitan Jr., PA, Garry Valentin Primary Care Provide r Encounter Details Date Type Department Care Team (Latest Contact Info) Description 03/07/2018 Orders Only [facility]INCON[facility] ProviderDalia MD [address] [place] [address] Social History Tobacco Use Types Packs/Day Years Used Date Smoking Tobacco: Former Cigarettes Q uit: 02/21/2008 Alcohol Use Standard Drinks/Week Comments Yes 0 (1 standard drink = 0.6 oz pur e alcohol) socially Comments Unknown Sex and Gender Information Value Date Recorded Sex Assigned at Not on file Legal Sex 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 PROPERTY ADJUSTER Gender Identity Not on file Sexual Orientation Not on file documented as of this encounter Plan of Treatment Not on file documented as of this encounter Procedures Procedure Name Priority Date/Time Associated Diagnosis Comments CARDIOLOGY REPORT 05/02/2018 12: 00 AM PROPERTY ADJUSTER documented in this encounter Results * CARDIOLOGY REPORT (05/02/2018 12:00 AM PROPERTY ADJUSTER) Anatomical Region Laterality Modality Other Narrative 05/02/2018 12:00 AM PROPERTY ADJUSTER Ordered by an unspecified provider. us Historical Provider [facility] Final Result documented in this encounter Visit Diagnoses Not on filedocumented in this encounter Care Teams Network Communications Engineer Relationship Specialty Start Date End Date Referral, Self PCP - General 07/03/17 01/14/20 Garry Gaitan Jr., PA PCP - General Family Medicine 01/15/20 documented as of this encounter
--- OUTSIDE RECORDS SUMMARY | 2024-11-08 11:20 | XMS_ITS | Encounter Summary ---
Author Organization [facility] Facility Care Team Providers Care Morning News Anchor Name Role Phone Referral, Self Primary Care Provider MIGUELITO Solis Jr., Garry Valentin Primary Care Provide r Encounter Details Date Type Department Care Team (Latest Contact Info) Description 06/29/2017 Orders Only [facility] CLINCONV ProviderDalia MD [address] [place] [address] Social History Tobacco Use Types Packs/Day Years Used Date Smoking Tobacco: Never Assessed Comments Unknown Sex and Gender Information Value Date Recorded Sex Assigned at Not on file Legal Sex 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 OPERATION AGENT Gender Identity Not on file Sexual Orientation [...] on filedocumented in this encounter Care Teams Morning News Anchor Relationship Specialty Start Date End Date Referral, Self PCP - General 07/03/17 01/14/20 Garry Gaitan Jr., PA PCP - General Family Medicine 01/15/20 documented as of this encounter
== END 2024-11-08 10:53 | disposition home or self-care (01) ==
LOC: ANHFOHIMG 10:52
PROVIDERS: PCP Physician Assistant; Visit Provider Nurse Practitioner Obstetrics & Gynecology
DX: R92.8 Other abnormal and inconclusive findings on diagnostic imaging of breast (principal)
CPT/HCPCS: 76642

== ENCOUNTER 2024-11-29 10:47 | Outpatient (CLI) | payer BC, SELFPAY ==
--- NOTE | ~2024-11-29 | MR_ITS ---
MR breast BI wo/w con 12/02/2024 14:25 CDT INDICATION: Palpable lump subareolar location the right breast. TECHNIQUE: MRI of the breasts perform using standard protocol pre-and post IV contrast with the following sequences: Axial T2 STIR, axial T1, axial vibrant T1 with fat suppression precontrast and multiphasic postcontrast. 17 cc MultiHance administered intravenously. COMPARISON: Echo multiple 08/19/2020 FINDINGS: There are no abnormalities on the precontrast sequences. There is mild background parenchymal enhancement. There is a 1.3 x 1.1 x 0.9 cm mass in the outer aspect of the right breast at the 10:00 position, middle third with rapid plateau enhancement. This was previously biopsy-proven benign. In the subareolar location of the right breast there is a mass which is hypointense on T1 and hyperintense on T2, most likely complicated cyst or focally dilated duct. No abnormal enhancement. No areas of enhancement meeting threshold criteria on CAD analysis. No evidence of signal abnormalities in the axillary or internal mammary node distributions. LEFT BREAST: No signal abnormalities on precontrast sequences. There is mild background parenchymal enhancement. No enhancing lesions following contrast administration. No areas of enhancement meeting threshold criteria on CAD analysis. No evidence of signal abnormalities in the axillary or internal mammary node distributions.] IMPRESSION: 1: Right breast: Negative. No evidence of malignancy. BI-RADS category 2. Recommend annual mammography follow-up. 2: Left breast: Negative. No evidence of malignancy. BI-RADS category 1. Recommend annual mammography follow-up. Follow-up MRI may be useful for supplementing mammographic evaluation as clinically indicated. Reviewed, dictated and finalized at location B. IMPRESSION: 1: Right breast: Negative. No evidence of malignancy. BI-RADS category 2. Recommend annual mammography follow-up. 2: Left breast: Negative. No evidence of malignancy. BI-RADS category 1. Re commend annual mammography follow-up. Follow-up MRI may be useful for supplementing mammographic evaluation as clinic ally indicated.
--- OUTSIDE RECORDS SUMMARY | 2024-11-29 10:53 | XMS_ITS | Encounter Summary ---
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 Not [...] - Final * COMPREHENSIVE METABOLIC PANEL (12/14/2017) Pathologist [facility] SODIUM S/P/B 138 POTASSIUM S/P/B 3.9 CO2 [...] LABORATORY Final Result * HEMOGLOBIN, GLYCOSYLATED (04/11/2017) Pathologist [facility] HGB A1C 5.2 04/11/2017 us Doc [facility] Abstract LABORATORY Final Result * COMPREHENSIVE METABOLIC PANEL (04/11/2017) Pathologist [facility] GLUCOSE 85 mg/dL BUN 22 CREATININE S/P/B 1.0 0.5 - 1.0 ALKALINE PHOSPHATASE S/P/B 58 ALT 9 AST 14 BILIRUBIN TOTAL S/P/B 0.3 ALBUMIN S/P/B 4.0 3.5 - 5.0 TOTAL PROTEIN S/P/B 6.8 GLOBULIN 2.8 GGT 2.0 04/11/2017 us Doc [facility] Abstract LABORATORY Final Result * LIPID PANEL (04/11/2017) Pathologist [facility] CHOLESTEROL 157 HDL 40 TRIGLYCERIDES 306 LDL (CALCULATED) 55 04/11/2017 us Doc [facility] Abstract LABORATORY Final Result documented in this encounter Visit Diagnoses Not on filedocumented in this encounter Care Teams Boot Lace Cutter Machine Relationship Specialty Start Date End Date Garry Gaitan PA [address] [place] [address] [address] [place], [place] [phone] PCP - General PHYSICIAN TRANSFER STATION OPERATOR 07/04/17 Joseline Maldonado MD [facility]. [facility] [address] [place], [place] [phone] [place] Sample Grader CARDIOVASCULAR DISEASE 08/03/17 documented as of this encounter
--- OUTSIDE RECORDS SUMMARY | 2024-11-29 10:53 | XMS_ITS | Encounter Summary ---
Author Organization [facility] Facility Care Team Providers Care Information Clerk Name Role Phone Referral, Self Primary Care Provider MIGUELITO Solis Jr., Garry Valentin Primary Care Provide r Encounter Details Date Type Department Care Team (Latest Contact Info) Description 06/29/2017 Orders Only [facility] ProviderDalia MD [address] [place] [address] Social History Tobacco Use Types Packs/Day Years Used Date Smoking Tobacco: Never Assessed Comments Unknown Sex and Gender Information Value Date Recorded Sex Assigned at Not on file Legal Sex 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 FALAFEL CART COOK Gender Identity Not on file Sexual [...] on filedocumented in this encounter Care Teams Information Clerk Relationship Specialty Start Date End Date Referral, Self PCP - General 07/03/17 01/14/20 Garry Gaitan Jr., PA PCP - General Family Medicine 01/15/20 documented as of this encounter
--- OUTSIDE RECORDS SUMMARY | 2024-11-29 10:53 | XMS_ITS | Clinical Summary ---
Author Organization [facility] Address [address] [place] [address] Care Team Providers Care Renal Dialysis Technician Name Role Phone Garry Gaitan Primary Care Provider [phone] Joseline Maldonado MD Unavailable [phone] Allergies No known active allergies Medications Multiple Vitamin (DAILY VITAMINS) Tab Take 1 tablet by mouth daily. 10/27/2014 Active MANAGER OF FINANCIAL REPORTING THYROID 90 MG Tab Take 1 tablet [...] mouth daily. 90 tablet 3 09/27/2022 Active metoprolol succinate ER (TOPROL-XL) 25 MG 24 hr tablet Take 2 tablets (50 mg total) by mouth nightly at bedtime. 90 tablet 1 09/15/2023 Active WEGOVY 1 mg/dose injection (PEN) Inject 1 mg into the skin once a week. 09/26/2023 Active hydrOXYzine (VISTARIL) 25 MG capsule Take 1 capsule (25 mg total) by mouth daily. Active lisinopril (PRINIVIL) 5 MG tablet Take 1 tablet (5 mg total) by mouth daily. 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 on file [...] 3:34 PM CDT Height 165.1 cm (5' 5) 10/30/2023 3:34 PM CDT Body Mass Index 35.28 10/30/2023 3:34 PM CDT Plan of Treatment Health Maintenance [...] 07/28/2019 07/27/2017, 01/26/2016, 10/20/2015, Additional history exists Pneumococcal Vaccine: 50+ Years (1 of 1 - PCV) 07/05/2023 Zoster Vaccines (1 of 2) 07/05/2023 COVID-19 Vaccine (3 - season) 2024 07/08/2020, 06/10/2020 Meningococcal B Vaccine Aged Out No l onger eligible based on patient's age to complete this topic Meningococcal Vaccine Aged Out No marco abida eligible based on patient's age to complete this topic RSV Immunizations Under 20 Months Aged Out No longer eligible based on patient's age to complete this topic Advance Directives * Full Code (Latest Code Status on File) Date Activated Date Inactivated Comments 09/20/2022 1:50 PM 09/20/2022 8:29 PM Care Teams Renal Dialysis Technician Relationship Specialty Start Date End Date Garry Gaitan PA [address] [place] [address] PCP - General PHYSICIAN EXTRACTION MACHINE OPERATOR 07/04/17 Joseline Maldonado MD [facility]. [facility] [address] [place], [place] [address] [place] Quantitative Analyst CARDIOVASCULAR DISEASE 08/03/17
--- OUTSIDE RECORDS SUMMARY | 2024-11-29 10:53 | XMS_ITS | Encounter Summary ---
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
--- OUTSIDE RECORDS SUMMARY | 2024-11-29 10:53 | XMS_ITS | Encounter Summary ---
Author Organization [facility] Facility Care Team Providers Care Pipe Layer Name Role Phone Referral, Self Primary Care Provider MIGUELITO Solis Jr., Garry Valentin Primary Care Provide r Encounter Details Date Type Department Care Team (Latest Contact Info) Description 09/07/2017 Orders Only [facility] ProviderDalia MD [address] [place] [address] Social History Tobacco Use Types Packs/Day Years Used Date Smoking Tobacco: Never Assessed Comments Unknown Sex and Gender Information Value Date Recorded Sex Assigned at Not on file Legal Sex 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 SUPERINTENDENT FACTORY Gender Identity Not on file Sexual Orientation [...] on filedocumented in this encounter Care Teams Pipe Layer Relationship Specialty Start Date End Date Referral, Self PCP - General 07/03/17 01/14/20 Garry Gaitan Jr., PA PCP - General Family Medicine 01/15/20 documented as of this encounter
--- OUTSIDE RECORDS SUMMARY | 2024-11-29 10:53 | XMS_ITS | Clinical Summary ---
Author Organization [facility] Address [address] [place] [address] Phone Care Team Providers Care Offal Separator Name Role Phone MIGUELITO Gaitan Jr., Robert [...] days 3 mL 1 12/07/2023 Active thyroid (JUICE SCALEMAN Thyroid) 90 mg tabletIndication s:Hypothyroidism due to [...] Encounters Date Type Department Care Team Description 11/08/2024 Orders Only [facility] Health Information Management [address] [place] [id number] Scanning, Provider from Last 3 Months Immunizations Immunization Administration [...] file Legal Sex 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 QUALITY CONTROL ASSISTANT Gender Identity Not on file Sexual Orientation [...] 10/12/2010 Zoster Vaccine (1 of 2) 07/05/2023 Depression Screening 07/05/2024 07/06/2023, 10/08/19 23 Regular Well Visit/Exam 18-64 10/25/2024 10/26/2023, 10/07/2022, 10/07/2022 Covid-19 Vaccine ( - season) 2024 07/08/2020, 06/10/2020 Influenza Vaccine (#1) 2024 , 03/27/2018, 02/04/2016, Additional history exists Breast Cancer Screening-Mammogram 11/06/2024 11/07/2023, 08/19/2020, 08/19/2020, Additional history exists Pneumococcal vaccine <65 Aged Out No longer eligible based on patient's age to complete this topic Procedures Procedure Name Priority Date/Time Associated Diagnosis Comments SCAN - RADIOLOGY/IMAGING 11/08/2024 SCREENING MAMMOGRAM BILATERAL W CARRIE Schedule Routine, Read Routine (OP Routine) 11/07/2023 4:46 PM CDT from Last 3 Months or Most Recently Relevant to Health Maintenance Results * SCAN - RADIOLOGY/IMAGING (11/08/2024) Anatomical Region Laterality Modality Other us Provider Scanning Final Result * (ABNORMAL) Screening Mammogram Bilateral W Carrie (11/07/2023 4:46 PM CDT) Anatomical Region Laterality Modality Breast Bilateral Mammography Historical Provider IMOtto MAMMO PROCEDURES Enriqueta l Result from Last 3 Months or Most Recently Relevant to Health Maintenance Insurance [facility] CHOICE PLUS [facility] HMO/PPO Address: [facility] [address] [place] [address] BLUE ACCESS OOS ANTHEM ACCESS Care Teams Offal Separator Relationship Specialty Start Date End Date Garry Gaitan Jr., PA PCP - General Family Medicine 01/15/20
--- OUTSIDE RECORDS SUMMARY | 2024-11-29 10:53 | XMS_ITS | Encounter Summary ---
Author Organization [facility] Facility Care Team Providers Care Patient Observation Assistant Name Role Phone Referral, Self Primary Care Provider MIGUELITO Solis Jr., Garry Valentin Primary Care Provide r Encounter Details Date Type Department Care Team (Latest Contact Info) Description 04/12/2017 Orders Only [facility] ProviderDalia MD [address] [place] [address] Social History Tobacco Use Types Packs/Day Years Used Date Smoking Tobacco: Never Assessed Comments Unknown Sex and Gender Information Value Date Recorded Sex Assigned at Not on file Legal Sex 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 RED CROSS WORKER Gender Identity Not on file Sexual Orientation [...] on filedocumented in this encounter Care Teams Patient Observation Assistant Relationship Specialty Start Date End Date Referral, Self PCP - General 07/03/17 01/14/20 Garry Gaitan Jr., PA PCP - General Family Medicine 01/15/20 documented as of this encounter
--- OUTSIDE RECORDS SUMMARY | 2024-11-29 10:53 | XMS_ITS | Encounter Summary ---
Author Organization [facility] Address [address] [place] [address] Care Team Providers Care Outsoles Channel Opener Name Role Phone Tran Alcantara MD Primary Care Provider [phone] Garry Gaitan Primary Care Provider [phone] Joseline Maldonado MD Unavailable [phone] Encounter Details Date Type Department Care Team (Late st Contact Info) Description 03/17/2015 Abstract [facility] [address] [place] [address] David Neumann PA-C [address] [place] [phone] Social History Tobacco Use Types Packs/Day Years Used Date Smoking Tobacco: Former Comments Unknown Sex and Gender Information Value Date Recorded Sex Assigned at Not on file Legal Sex Female 8:52 PM CDT Gender Identity Not on file Sexual Orientation Not on file 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 Not on file Not on file Not on f ile documented as of this encounter Plan of Treatment Not on file documented as of this encounter Visit Diagnoses Not on filedocumented in this encounter Care Teams Outsoles Channel Opener Relationship Specialty Start Date End Date Tran Alcantara MD [address] [place] [address] [place] [address] PCP - General FAMILY PRACTICE 12/24/15 07/03/17 Garry Gaitan PA [address] [place] [address] [place] [address] PCP - General PHYSICIAN CIVIL DESIGN SPECIALIST 07/04/17 Joseline Maldonado MD [facility] [address] [place] [address] [place] Animal Behaviourist CARDIOVASCULAR DISEASE 08/03/17 documented as of this encounter
--- OUTSIDE RECORDS SUMMARY | 2024-11-29 10:53 | XMS_ITS | Encounter Summary ---
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
--- OUTSIDE RECORDS SUMMARY | 2024-11-29 10:53 | XMS_ITS | Clinical Summary ---
Author Organization [facility] [place] Address [address] [facility] [place] [address] Care Team Providers Care Retail Salesman Name Role Phone Unavailable Primary Care Provider Unavailabl e Allergies No known active allergies Medications lisinopril-hydr oCHLOROthiazide (ZESTORETIC) 20-12.5 mg tablet TAKE 1 2 (ONE HALF) TABLET BY MOUTH ONCE DAILY 1 08/23/2018 Active metoprolol succinate (TOPROL XL) 25 mg Extended Release 24 hour tablet TAKE 1 2 (ONE HALF) TABLET BY MOUTH ONCE DAILY AT BEDTIME 08/23/2018 Active IT AUDITOR THYROID 90 mg tablet TAKE 1 TABLET [...]
--- OUTSIDE RECORDS SUMMARY | 2024-11-29 10:53 | XMS_ITS | Encounter Summary ---
Author Organization [facility] Facility Care Team Providers Care Compliance Coordinator Name Role Phone Referral, Self Primary Care Provider Alex Gaitan Jr., PA, Garry Valentin Primary Care Provide r Encounter Details Date Type Department Care Team (Latest Contact Info) Description 03/07/2018 Orders Only [facility] ProviderDalia MD [address] [place] [address] Social History Tobacco Use Types Packs/Day Years Used Date Smoking Tobacco: Former Cigarettes Q uit: 02/21/2008 Alcohol Use Standard Drinks/Week Comments Yes 0 (1 standard drink = 0.6 oz pur e alcohol) socially Comments Unknown Sex and Gender Information Value Date Recorded Sex Assigned at Not on file 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 us Historical Provider [facility] LING Final Result documented in this encounter Visit Diagnoses Not on filedocumented in this encounter Care Teams Compliance Coordinator Relationship Specialty Start Date End Date Referral, Self PCP - General 07/03/17 01/14/20 Garry Gaitan Jr., PA PCP - General Family Medicine 01/15/20 documented as of this encounter
== END 2024-11-29 10:48 | disposition home or self-care (01) ==
PROVIDERS: PCP Physician Assistant; Visit Provider Surgery
DX: N63.41 Unspecified lump in right breast, subareolar (principal); R92.8 Other abnormal and inconclusive findings on diagnostic imaging of breast
CPT/HCPCS: 77049; A9577; C8908